=== PATIENT | male | born 1970 | race Caucasian/White ===

== ENCOUNTER 2021-11-04 14:21 | Inpatient (IN) | payer OTHER ==
[2021-11-04 15:14] VITALS: BMI 22.8
[2021-11-04] MEDS ORDERED: SODIUM CHLORIDE 0.9% 500 ML INFUS.BAG IV ONE (16:13)
[2021-11-04] MEDS ORDERED: ACETAMINOPHEN 1000 MG/100 ML BAG IVPB ONE (16:13)
[2021-11-04 17:16] LABS: BASO % 0.7 % (0-2.0); EOS % 1.1 % (0-4.5); HEMATOCRIT 41.5 % (35.4-49); HEMOGLOBIN 14.1 GM/dL (11.7-16.9); LYMPH % 9.7 % (8-40); MCH 30.3 pg (25.7-33.7); MCHC 33.9 g/dl (32.0-35.9); MEAN CELL VOLUME 89.3 fl (80-96); MEAN PLT VOLUME 8.3 fl (7.5-11.1); NEUT % 82.5 % (42.8-82.8); PLATELET COUNT 255 10^3/uL (134-434); RBC 4.65 M/mm3 (4.00-5.60); RDW 13.5 % (11.9-15.9); WHITE BLOOD COUNT 15.2 K/mm3 (4.0-10.0)
[2021-11-04 17:53] LABS: INR 1.07 (0.83-1.09); PROTHROMBIN TIME (PATIENT) 12.3 SEC (9.7-13.0)
[2021-11-04 18:01] LABS: ALBUMIN 3.9 g/dl (3.4-5.0); BLOOD UREA NITROGEN 13.8 mg/dL (7-18); CALCIUM 9.5 mg/dL (8.5-10.1)
[2021-11-04 18:04] LABS: CREATININE 0.6 mg/dL (0.55-1.3)
[2021-11-04 18:06] LABS: BILIRUBIN,TOTAL 0.6 mg/dL (0.2-1); TOT PROT 7.4 g/dl (6.4-8.2)
[2021-11-04] MEDS ORDERED: PIPERACILLIN/TAZOB 4.5 GM 4.5 GM in DEXTROSE 5%-WATER 100 ML IVPB ONE (18:46)
[2021-11-04] MEDS ORDERED: morphine CARPU-JECT 2 MG/1 ML DISP.SYRIN IVPUSH ONE (18:46)
[2021-11-04] MEDS ORDERED: PIPERACILLIN/TAZOB 4.5 GM 4.5 GM/100 ML BAG IVPB ONE (19:03)
[2021-11-04] MEDS ORDERED: ONDANSETRON 4 MG/2 ML VIAL IVPUSH PRN (19:28)
[2021-11-04] MEDS ORDERED: ACETAMINOPHEN 1000 MG/100 ML BAG IVPB PRN (19:28)
[2021-11-04] MEDS: SODIUM CHLORIDE 1,000 ML IV SCH (20:48)
[2021-11-05] MEDS ORDERED: PIPERACILLIN/TAZOB 3.375 GM 3.375 GM in DEXTROSE 5%-WATER - 50 ML IVPB SCH ×2 (03:00→18:00)
[2021-11-05] MEDS: PIPERACILLIN/TAZOB 3.375 GM 3.375 GM in DEXTROSE 5%-WATER - 50 ML IVPB SCH ×3 (04:25→18:20)
[2021-11-05] MEDS: SODIUM CHLORIDE 1,000 ML IV SCH ×2 (06:29→18:18)
[2021-11-05] MEDS ORDERED: SUCCINYLCHOLINE CHLORIDE 200 MG/10 ML SYRINGE ONE (07:17)
[2021-11-05] MEDS ORDERED: MIDAZOLAM HCL 2 MG/2 ML SINGLE DOSE VIAL ONE ×2 (07:17→10:57)
[2021-11-05] MEDS ORDERED: PROPOFOL 20 ML ONE (07:17)
[2021-11-05] MEDS ORDERED: ROCURONIUM BROMIDE 50 MG/5 ML SYRINGE ONE ×2 (07:18→10:55)
[2021-11-05] MEDS ORDERED: SEVOFLURANE 250 ML BTL ONE (07:19)
[2021-11-05] MEDS ORDERED: LIDOCAINE HCL/PF 2% SDV 5ML VIAL ONE ×2 (07:21→10:57)
[2021-11-05 09:25] LABS: HEMATOCRIT 39.1 % (35.4-49); HEMOGLOBIN 13.4 GM/dL (11.7-16.9); MCH 30.8 pg (25.7-33.7); MCHC 34.1 g/dl (32.0-35.9); MEAN CELL VOLUME 90.2 fl (80-96); MEAN PLT VOLUME 8.8 fl (7.5-11.1); PLATELET COUNT 238 10^3/uL (134-434); RBC 4.34 M/mm3 (4.00-5.60); RDW 13.8 % (11.9-15.9); WHITE BLOOD COUNT 12.3 K/mm3 (4.0-10.0)
[2021-11-05] MEDS ORDERED: NICOTINE 7 MG/24 HOURS TOPICAL PATCH TD SCH (10:00)
[2021-11-05 10:03] LABS: BLOOD UREA NITROGEN 12.6 mg/dL (7-18); CALCIUM 8.6 mg/dL (8.5-10.1)
[2021-11-05 10:06] LABS: CREATININE 0.6 mg/dL (0.55-1.3)
[2021-11-05] MEDS ORDERED: PROPOFOL 40 ML ONE (10:56)
[2021-11-05] MEDS ORDERED: DEXAMETHASONE SOD PHOSPHATE 4 MG/1 ML VIAL ONE ×2 (10:57→12:09)
[2021-11-05] MEDS ORDERED: KETOROLAC TROMETHAMINE 30 MG/1 ML VIAL ONE ×2 (10:57→12:26)
[2021-11-05] MEDS ORDERED: ONDANSETRON 4 MG/2 ML VIAL ONE ×2 (10:57→11:57)
[2021-11-05] MEDS ORDERED: LIDOCAINE HCL 2% 100 MG/5 ML DISP.SYRIN ONE (11:04)
[2021-11-05] MEDS ORDERED: BUPIVACAINE HCL/PF 0.5% (5MG/ML) 10 ML VIAL IJ ONE (11:21)
[2021-11-05] MEDS ORDERED: HYDROmorphone HCl 2 MG/ML VIAL ONE (12:20)
[2021-11-05] MEDS ORDERED: GLYCOPYRROLATE 0.2 MG/1 ML VIAL ONE (12:47)
[2021-11-05] MEDS ORDERED: NEOSTIGMINE METHYLSULFATE 0.5 MG/ML - 10 ML MDV ONE (12:47)
[2021-11-05] MEDS ORDERED: ONDANSETRON 4 MG/2 ML VIAL IVPUSH PRN (13:44)
[2021-11-05] MEDS ORDERED: LACTATED RINGERS SOLUTION 1,000 ML IV SCH (13:45)
[2021-11-05] MEDS: KETOROLAC TROMETHAMINE 15 MG/ML VIAL IVPUSH PRN (18:21)
[2021-11-05] MEDS: ACETAMINOPHEN 1000 MG/100 ML BAG IVPB PRN (20:16)
[2021-11-05] MEDS: HEPARIN NA (PORCINE) 5,000 UNITS/ML 1ML VIAL SQ SCH (21:44)
[2021-11-06] MEDS: SODIUM CHLORIDE 1,000 ML IV SCH (00:05)
[2021-11-06] MEDS: PIPERACILLIN/TAZOB 3.375 GM 3.375 GM in DEXTROSE 5%-WATER - 50 ML IVPB SCH ×2 (01:25→11:19)
[2021-11-06] MEDS: KETOROLAC TROMETHAMINE 15 MG/ML VIAL IVPUSH PRN ×2 (02:36→15:06)
[2021-11-06] MEDS: ACETAMINOPHEN 1000 MG/100 ML BAG IVPB PRN (09:19)
[2021-11-06 09:32] LABS: BASO % 0.3 % (0-2.0); EOS % 0.3 % (0-4.5); HEMATOCRIT 40.1 % (35.4-49); HEMOGLOBIN 13.3 GM/dL (11.7-16.9); MCH 29.8 pg (25.7-33.7); MCHC 33.1 g/dl (32.0-35.9); MEAN PLT VOLUME 8.5 fl (7.5-11.1); MONO % 4.9 % (3.8-10.2); NEUT % 88.5 % (42.8-82.8); PLATELET COUNT 262 10^3/uL (134-434); RBC 4.45 M/mm3 (4.00-5.60); RDW 13.3 % (11.9-15.9); WHITE BLOOD COUNT 13.7 K/mm3 (4.0-10.0)
[2021-11-06 10:01] LABS: CALCIUM 8.1 mg/dL (8.5-10.1); MAGNESIUM 1.7 mg/dL (1.8-2.4)
[2021-11-06 10:02] LABS: BLOOD UREA NITROGEN 10.1 mg/dL (7-18)
[2021-11-06 10:05] LABS: CREATININE 0.6 mg/dL (0.55-1.3)
[2021-11-06] MEDS: HEPARIN NA (PORCINE) 5,000 UNITS/ML 1ML VIAL SQ SCH ×2 (11:20→21:31)
[2021-11-06] MEDS: NICOTINE 7 MG/24 HOURS TOPICAL PATCH TD SCH (11:22)
[2021-11-06] MEDS ORDERED: MAGNESIUM OXIDE 400 MG TABLET (FP) PO ONE (13:39)
[2021-11-06] MEDS ORDERED: PIPERACILLIN/TAZOB 4.5 GM 4.5 GM in DEXTROSE 5%-WATER 100 ML IVPB ONE (15:30)
[2021-11-07] MEDS: ACETAMINOPHEN 500 MG TABLET (FP) PO PRN ×3 (01:21→21:39)
[2021-11-07] MEDS ORDERED: PIPERACILLIN/TAZOB 3.375 GM 3.375 GM in DEXTROSE 5%-WATER - 50 ML IVPB ONE (09:29)
[2021-11-07] MEDS: NICOTINE 7 MG/24 HOURS TOPICAL PATCH TD SCH (09:51)
[2021-11-07] MEDS: HEPARIN NA (PORCINE) 5,000 UNITS/ML 1ML VIAL SQ SCH ×2 (09:51→21:40)
[2021-11-07 12:21] LABS: BASO % 0.3 % (0-2.0); EOS % 0.4 % (0-4.5); HEMATOCRIT 37.6 % (35.4-49); HEMOGLOBIN 12.8 GM/dL (11.7-16.9); MCH 30.5 pg (25.7-33.7); MEAN CELL VOLUME 89.7 fl (80-96); MEAN PLT VOLUME 8.4 fl (7.5-11.1); NEUT % 90.3 % (42.8-82.8); PLATELET COUNT 255 10^3/uL (134-434); RBC 4.19 M/mm3 (4.00-5.60)
[2021-11-07 12:47] LABS: BLOOD UREA NITROGEN 6.6 mg/dL (7-18); CALCIUM 8.4 mg/dL (8.5-10.1)
[2021-11-07 12:50] LABS: CREATININE 0.5 mg/dL (0.55-1.3)
[2021-11-07 12:52] LABS: BILIRUBIN,TOTAL 0.6 mg/dL (0.2-1); TOT PROT 5.8 g/dl (6.4-8.2)
[2021-11-07 12:55] LABS: ALBUMIN 2.7 g/dl (3.4-5.0)
[2021-11-07] MEDS: PIPERACILLIN/TAZOB 3.375 GM 3.375 GM in DEXTROSE 5%-WATER 100 ML IVPB SCH (18:06)
[2021-11-08] MEDS: PIPERACILLIN/TAZOB 3.375 GM 3.375 GM in DEXTROSE 5%-WATER 100 ML IVPB SCH ×3 (02:00→17:47)
[2021-11-08] MEDS: ACETAMINOPHEN 500 MG TABLET (FP) PO PRN ×2 (05:56→21:51)
[2021-11-08 08:45] LABS: BASO % 0.3 % (0-2.0); HEMATOCRIT 38.1 % (35.4-49); HEMOGLOBIN 12.8 GM/dL (11.7-16.9); LYMPH % 5.6 % (8-40); MCHC 33.6 g/dl (32.0-35.9); MEAN CELL VOLUME 89.4 fl (80-96); MEAN PLT VOLUME 8.2 fl (7.5-11.1); NEUT % 85.1 % (42.8-82.8); PLATELET COUNT 282 10^3/uL (134-434); RBC 4.26 M/mm3 (4.00-5.60); RDW 13.3 % (11.9-15.9); WHITE BLOOD COUNT 14.8 K/mm3 (4.0-10.0)
[2021-11-08 09:23] LABS: CALCIUM 8.7 mg/dL (8.5-10.1)
[2021-11-08 09:24] LABS: ALBUMIN 2.7 g/dl (3.4-5.0); BLOOD UREA NITROGEN 8.1 mg/dL (7-18); MAGNESIUM 2.3 mg/dL (1.8-2.4)
[2021-11-08 09:27] LABS: CREATININE 0.7 mg/dL (0.55-1.3)
[2021-11-08 09:29] LABS: TOT PROT 5.9 g/dl (6.4-8.2)
[2021-11-08 09:30] LABS: BILIRUBIN,TOTAL 0.5 mg/dL (0.2-1)
[2021-11-08] MEDS: HEPARIN NA (PORCINE) 5,000 UNITS/ML 1ML VIAL SQ SCH ×2 (09:57→21:51)
[2021-11-08] MEDS: NICOTINE 7 MG/24 HOURS TOPICAL PATCH TD SCH (09:57)
[2021-11-09] MEDS: PIPERACILLIN/TAZOB 3.375 GM 3.375 GM in DEXTROSE 5%-WATER 100 ML IVPB SCH ×3 (02:09→17:48)
[2021-11-09] MEDS: ACETAMINOPHEN 500 MG TABLET (FP) PO PRN ×2 (06:38→21:28)
[2021-11-09 08:47] VITALS: RESP 18
[2021-11-09 09:14] LABS: BASO % 0.7 % (0-2.0); EOS % 2.8 % (0-4.5); HEMATOCRIT 38.7 % (35.4-49); LYMPH % 7.3 % (8-40); MCH 30.2 pg (25.7-33.7); MCHC 33.5 g/dl (32.0-35.9); MEAN CELL VOLUME 90.2 fl (80-96); MEAN PLT VOLUME 8.1 fl (7.5-11.1); MONO % 7.8 % (3.8-10.2); NEUT % 81.4 % (42.8-82.8); PLATELET COUNT 354 10^3/uL (134-434); RBC 4.29 M/mm3 (4.00-5.60); RDW 13.4 % (11.9-15.9); WHITE BLOOD COUNT 10.9 K/mm3 (4.0-10.0)
[2021-11-09 09:31] LABS: ALBUMIN 2.6 g/dl (3.4-5.0); CALCIUM 8.6 mg/dL (8.5-10.1); MAGNESIUM 2.2 mg/dL (1.8-2.4)
[2021-11-09 09:32] LABS: BLOOD UREA NITROGEN 7.7 mg/dL (7-18)
[2021-11-09] MEDS: NICOTINE 7 MG/24 HOURS TOPICAL PATCH TD SCH (09:34)
[2021-11-09] MEDS: HEPARIN NA (PORCINE) 5,000 UNITS/ML 1ML VIAL SQ SCH ×2 (09:34→21:28)
[2021-11-09 09:35] LABS: CREATININE 0.6 mg/dL (0.55-1.3)
[2021-11-09 09:36] LABS: BILIRUBIN,TOTAL 0.4 mg/dL (0.2-1); TOT PROT 6.1 g/dl (6.4-8.2)
[2021-11-09] MEDS ORDERED: PIPERACILLIN/TAZOBACTAM 3.375 GM VIAL IVPB ONE (17:04)
[2021-11-10] MEDS: PIPERACILLIN/TAZOB 3.375 GM 3.375 GM in DEXTROSE 5%-WATER 100 ML IVPB SCH ×2 (01:30→10:30)
[2021-11-10] MEDS ORDERED: PIPERACILLIN/TAZOBACTAM 3.375 GM VIAL IVPB ONE (10:16)
[2021-11-10] MEDS: NICOTINE 7 MG/24 HOURS TOPICAL PATCH TD SCH (10:30)
[2021-11-10] MEDS: HEPARIN NA (PORCINE) 5,000 UNITS/ML 1ML VIAL SQ SCH (10:30)
[2021-11-10 11:49] VITALS: TEMP 98.6
[2021-11-10 11:51] LABS: BASO % 0.5 % (0-2.0); HEMATOCRIT 38.3 % (35.4-49); HEMOGLOBIN 12.8 GM/dL (11.7-16.9); LYMPH % 9.6 % (8-40); MCHC 33.3 g/dl (32.0-35.9); MEAN CELL VOLUME 90.1 fl (80-96); MEAN PLT VOLUME 7.6 fl (7.5-11.1); MONO % 7.4 % (3.8-10.2); NEUT % 79.5 % (42.8-82.8); PLATELET COUNT 401 10^3/uL (134-434); RBC 4.25 M/mm3 (4.00-5.60); RDW 13.7 % (11.9-15.9); WHITE BLOOD COUNT 9.7 K/mm3 (4.0-10.0)
[2021-11-10 12:14] LABS: ALBUMIN 2.8 g/dl (3.4-5.0); BLOOD UREA NITROGEN 9.2 mg/dL (7-18); CALCIUM 8.9 mg/dL (8.5-10.1); MAGNESIUM 2.3 mg/dL (1.8-2.4)
[2021-11-10 12:18] LABS: CREATININE 0.6 mg/dL (0.55-1.3)
[2021-11-10 12:19] LABS: TOT PROT 6.4 g/dl (6.4-8.2)
[2021-11-10 12:20] LABS: BILIRUBIN,TOTAL 0.3 mg/dL (0.2-1)
[2021-11-10 13:06] VITALS: BP 117/68; PULSE 77
== END 2021-11-10 13:05 | disposition home or self-care (01) | DRG 225 ==
LOC: JER 14:21 → SUATTDRO 19:36 → JASUSAT 19:36 → J6S 21:56 → JASUSAT 21:57 → J6S 21:57
PROVIDERS: ADMIT Internal Medicine Infectious Disease; ATTEND Nurse Practitioner Acute Care
PROC: 0DTJ4ZZ Resection of Appendix, Percutaneous Endoscopic Approach (ICD-10-PCS; principal; 2021-11-05 11:30)
DX: K35.32 Acute appendicitis with perforation, localized peritonitis, and gangrene, without abscess (principal); F17.210 Nicotine dependence, cigarettes, uncomplicated; I45.10 Unspecified right bundle-branch block; R94.31 Abnormal electrocardiogram [ECG] [EKG]; D72.829 Elevated white blood cell count, unspecified
CPT/HCPCS: 0241U-QW; 36415; 74177-TC; 80048; 80053; 80061; 83036; 83690; 83735; 84443; 84484; 85025; 85027; 85610; 86850; 86900; 86901; 87040; 88304-TC; 93005; 93010; 93306-TC; 94760; 97116-GP; 97161-GP; 99285-25; J1644; Q9967

== ENCOUNTER 2024-05-07 22:49 | Inpatient (IN) | payer OTHER ==
[2024-05-07 22:55] VITALS: BMI 25.1
[2024-05-07 23:44] LABS: BASO % 0.2 % (0-2.0); EOS % 0.1 % (0-4.5); HEMATOCRIT 42.9 % (35.4-49); HEMOGLOBIN 14.4 GM/dL (11.7-16.9); LYMPH % 7.3 % (8-40); MCH 30.1 pg (25.7-33.7); MCHC 33.6 g/dl (32.0-35.9); MEAN CELL VOLUME 89.6 fl (80-96); MEAN PLT VOLUME 8.2 fl (7.5-11.1); MONO % 9.2 % (3.8-10.2); NEUT % 83.2 % (42.8-82.8); PLATELET COUNT 276 10^3/uL (134-434); RBC 4.79 M/mm3 (4.00-5.60); RDW 13.2 % (11.9-15.9); WHITE BLOOD COUNT 10.9 K/mm3 (4.0-10.0)
[2024-05-07 23:51] LABS: INR 1.1 (0.83-1.09); PROTHROMBIN TIME (PATIENT) 12.1 SEC (9.7-13.0)
[2024-05-07 23:54] LABS: ACTIVATED PTT 33.1 SECONDS (25.2-36.5); POTASSIUM 3.8 mmol/L (3.5-5.1)
[2024-05-07 23:57] LABS: ALBUMIN 3.7 g/dl (3.4-5.0); BLOOD UREA NITROGEN 14.5 mg/dL (7-18)
[2024-05-08] LABS: CREATININE 0.8 mg/dL (0.55-1.3)
[2024-05-08 00:01] LABS: BILIRUBIN,TOTAL 0.4 mg/dL (0.2-1)
[2024-05-08 00:02] LABS: TOT PROT 7.2 g/dl (6.4-8.2)
[2024-05-08 03:04] LABS: EPI CELLS 10 /uL (0-25.1); HYALINE CASTS 0 /uL (0-3.1); PH,URINE 5.5 (5.0-8.0); URINE APPEARANCE CLOUDY; URINE BACTERIA 404 /uL (0-1359); URINE BILIRUBIN NEGATIVE (NEGATIVE); URINE COLOR YELLOW; URINE GLUCOSE (UA) NEGATIVE (NEGATIVE); URINE KETONE TRACE (NEGATIVE); URINE LEUK ESTERASE 2+ (NEGATIVE); URINE NITRITE NEGATIVE (NEGATIVE); URINE PROTEIN 1+ (NEGATIVE); URINE RBC 44 /uL (0-23.9); URINE UROBILINOGEN 0.2 mg/dL (0.2-1.0); URINE WBC 2724 /uL (0-25.8)
[2024-05-08] MEDS ORDERED: WATER FOR INJ,STERILE 10 ML ONE (03:41)
[2024-05-08] MEDS ORDERED: DOXYCYCLINE HYCLATE 100 MG CAPSULE PO ONE (03:41)
[2024-05-08] MEDS: DOXYCYCLINE HYCLATE 100 MG CAPSULE PO ONE (03:56)
[2024-05-08] MEDS ORDERED: ACETAMINOPHEN INJECTION 100 ML ONE (04:56)
[2024-05-08] MEDS: ACETAMINOPHEN 1000 MG/100 ML BAG IVPB ONE (04:59)
[2024-05-08 09:41] LABS: BASO % 0.3 % (0-2.0); EOS % 0.1 % (0-4.5); HEMATOCRIT 40.1 % (35.4-49); HEMOGLOBIN 13.9 GM/dL (11.7-16.9); LYMPH % 10.7 % (8-40); MCH 30.4 pg (25.7-33.7); MCHC 34.7 g/dl (32.0-35.9); MEAN CELL VOLUME 87.6 fl (80-96); MEAN PLT VOLUME 8.5 fl (7.5-11.1); MONO % 13.1 % (3.8-10.2); NEUT % 75.8 % (42.8-82.8); PLATELET COUNT 278 10^3/uL (134-434); RBC 4.57 M/mm3 (4.00-5.60); RDW 12.7 % (11.9-15.9); WHITE BLOOD COUNT 13.6 K/mm3 (4.0-10.0)
[2024-05-08 09:59] LABS: POTASSIUM 3.5 mmol/L (3.5-5.1)
[2024-05-08 10:06] LABS: CALCIUM 8.6 mg/dL (8.5-10.1)
[2024-05-08 10:07] LABS: ALBUMIN 3.4 g/dl (3.4-5.0)
[2024-05-08 10:10] LABS: CREATININE 0.7 mg/dL (0.55-1.3)
[2024-05-08 10:11] LABS: BILIRUBIN,TOTAL 0.6 mg/dL (0.2-1)
[2024-05-08 10:12] LABS: TOT PROT 6.7 g/dl (6.4-8.2)
[2024-05-08] MEDS: ENOXAPARIN NA (PORCINE) 40 MG/0.4 ML DISP.SYRIN SQ SCH (10:14)
[2024-05-08] MEDS: DOXYCYCLINE INJECTION 100 MG in DEXTROSE 5%-WATER 100 ML IVPB SCH (15:02)
[2024-05-08] MEDS: CEFTRIAXONE 1 G/50 ML PREMIX 50 ML IVPB SCH (20:21)
[2024-05-08] MEDS: IBUPROFEN 600 MG TABLET (FP) PO PRN (23:08)
[2024-05-09] MEDS: ACETAMINOPHEN 325 MG TABLET (FP) PO STA (00:38)
[2024-05-09 07:45] LABS: BASO % 0.5 % (0-2.0); EOS % 0.3 % (0-4.5); HEMATOCRIT 41.2 % (35.4-49); LYMPH % 9.1 % (8-40); MCH 30.1 pg (25.7-33.7); MCHC 34.1 g/dl (32.0-35.9); MEAN CELL VOLUME 88.4 fl (80-96); MEAN PLT VOLUME 8.2 fl (7.5-11.1); MONO % 12.3 % (3.8-10.2); NEUT % 77.8 % (42.8-82.8); PLATELET COUNT 262 10^3/uL (134-434); RBC 4.66 M/mm3 (4.00-5.60); RDW 13.1 % (11.9-15.9); WHITE BLOOD COUNT 17.9 K/mm3 (4.0-10.0)
[2024-05-09 08:00] LABS: POTASSIUM 4.5 mmol/L (3.5-5.1)
[2024-05-09 08:03] LABS: BLOOD UREA NITROGEN 15.3 mg/dL (7-18)
[2024-05-09 08:04] LABS: ALBUMIN 3.1 g/dl (3.4-5.0)
[2024-05-09 08:07] LABS: CREATININE 0.7 mg/dL (0.55-1.3)
[2024-05-09 08:09] LABS: BILIRUBIN,TOTAL 0.7 mg/dL (0.2-1); TOT PROT 6.8 g/dl (6.4-8.2)
[2024-05-10 08:19] LABS: BASO % 0.3 % (0-2.0); EOS % 0.7 % (0-4.5); HEMOGLOBIN 13.5 GM/dL (11.7-16.9); MCH 29.7 pg (25.7-33.7); MEAN CELL VOLUME 89.8 fl (80-96); MEAN PLT VOLUME 8.3 fl (7.5-11.1); MONO % 8.6 % (3.8-10.2); NEUT % 79.4 % (42.8-82.8); PLATELET COUNT 292 10^3/uL (134-434); RBC 4.57 M/mm3 (4.00-5.60); RDW 13.2 % (11.9-15.9); WHITE BLOOD COUNT 12.6 K/mm3 (4.0-10.0)
[2024-05-10 10:38] LABS: POTASSIUM 4.3 mmol/L (3.5-5.1)
[2024-05-10 10:44] LABS: ALBUMIN 3.2 g/dl (3.4-5.0); BLOOD UREA NITROGEN 15.2 mg/dL (7-18); MAGNESIUM 2.3 mg/dL (1.8-2.4)
[2024-05-10 10:46] LABS: CREATININE 0.6 mg/dL (0.55-1.3)
[2024-05-10 10:48] LABS: BILIRUBIN,TOTAL 0.6 mg/dL (0.2-1); TOT PROT 6.7 g/dl (6.4-8.2)
[2024-05-11 09:08] LABS: BASO % 0.6 % (0-2.0); EOS % 1.4 % (0-4.5); HEMATOCRIT 41.3 % (35.4-49); HEMOGLOBIN 13.7 GM/dL (11.7-16.9); LYMPH % 14.9 % (8-40); MCH 29.8 pg (25.7-33.7); MCHC 33.3 g/dl (32.0-35.9); MEAN CELL VOLUME 89.6 fl (80-96); MEAN PLT VOLUME 8.2 fl (7.5-11.1); MONO % 7.3 % (3.8-10.2); NEUT % 75.8 % (42.8-82.8); PLATELET COUNT 356 10^3/uL (134-434); RBC 4.61 M/mm3 (4.00-5.60); RDW 13.1 % (11.9-15.9); WHITE BLOOD COUNT 8.4 K/mm3 (4.0-10.0)
[2024-05-11 09:18] LABS: POTASSIUM 4.7 mmol/L (3.5-5.1)
[2024-05-11 09:23] LABS: ALBUMIN 3.3 g/dl (3.4-5.0); BLOOD UREA NITROGEN 12.5 mg/dL (7-18); MAGNESIUM 2.2 mg/dL (1.8-2.4)
[2024-05-11 09:26] LABS: CREATININE 0.5 mg/dL (0.55-1.3)
[2024-05-11 09:32] LABS: BILIRUBIN,TOTAL 0.6 mg/dL (0.2-1)
[2024-05-11] MEDS: ERTAPENEM SODIUM 1 GM in SODIUM CHLORIDE 50 ML IVPB SCH (10:40)
[2024-05-11] MEDS: DOXYCYCLINE HYCLATE 100 MG CAPSULE PO SCH (10:43)
[2024-05-11] MEDS: POLYETHYLENE GLYCOL (HEALTHYLAX) 3350 17 GM PACKET PO SCH (12:20)
[2024-05-12 10:14] LABS: BASO % 0.8 % (0-2.0); EOS % 1.4 % (0-4.5); HEMOGLOBIN 14.3 GM/dL (11.7-16.9); LYMPH % 15.7 % (8-40); MCH 30.2 pg (25.7-33.7); MCHC 34.1 g/dl (32.0-35.9); MEAN CELL VOLUME 88.7 fl (80-96); MEAN PLT VOLUME 8.1 fl (7.5-11.1); MONO % 5.5 % (3.8-10.2); NEUT % 76.6 % (42.8-82.8); PLATELET COUNT 397 10^3/uL (134-434); RBC 4.73 M/mm3 (4.00-5.60); RDW 13.3 % (11.9-15.9); WHITE BLOOD COUNT 9.9 K/mm3 (4.0-10.0)
[2024-05-12 11:41] LABS: POTASSIUM 5.3 mmol/L (3.5-5.1)
[2024-05-12 11:43] LABS: ALBUMIN 3.4 g/dl (3.4-5.0)
[2024-05-12 11:48] LABS: BILIRUBIN,TOTAL 0.6 mg/dL (0.2-1)
[2024-05-12 11:51] LABS: BLOOD UREA NITROGEN 14.9 mg/dL (7-18); CALCIUM 9.2 mg/dL (8.5-10.1); MAGNESIUM 2.3 mg/dL (1.8-2.4)
[2024-05-12 11:55] LABS: CREATININE 0.5 mg/dL (0.55-1.3)
[2024-05-12] MEDS: POLYETHYLENE GLYCOL (HEALTHYLAX) 3350 17 GM PACKET PO SCH (13:16)
[2024-05-13 07:35] VITALS: RESP 18
[2024-05-13 09:04] LABS: INR 1.09 (0.83-1.09)
[2024-05-13 09:09] LABS: BASO % 0.6 % (0-2.0); EOS % 1.5 % (0-4.5); HEMATOCRIT 40.1 % (35.4-49); HEMOGLOBIN 13.5 GM/dL (11.7-16.9); LYMPH % 14.5 % (8-40); MCHC 33.7 g/dl (32.0-35.9); MEAN CELL VOLUME 89.2 fl (80-96); MEAN PLT VOLUME 7.7 fl (7.5-11.1); NEUT % 78.4 % (42.8-82.8); PLATELET COUNT 408 10^3/uL (134-434); RDW 13.3 % (11.9-15.9); WHITE BLOOD COUNT 10.9 K/mm3 (4.0-10.0)
[2024-05-13 09:22] LABS: POTASSIUM 4.5 mmol/L (3.5-5.1)
[2024-05-13 09:28] LABS: CALCIUM 9.1 mg/dL (8.5-10.1)
[2024-05-13 09:29] LABS: ALBUMIN 3.3 g/dl (3.4-5.0); BLOOD UREA NITROGEN 11.7 mg/dL (7-18)
[2024-05-13 09:32] LABS: CREATININE 0.5 mg/dL (0.55-1.3)
[2024-05-13 09:33] LABS: BILIRUBIN,TOTAL 0.3 mg/dL (0.2-1); TOT PROT 6.7 g/dl (6.4-8.2)
[2024-05-13 15:59] VITALS: BP 123/73; PULSE 71; TEMP 98.8
== END 2024-05-13 19:40 | disposition home or self-care (01) | DRG 501 ==
LOC: JER 22:49 → JERBED 05-08 05:00 → J7W 05-08 07:56
PROVIDERS: ADMIT Internal Medicine; ATTEND Physician Assistant
DX: N45.1 Epididymitis (principal); N39.0 Urinary tract infection, site not specified; R74.01 Elevation of levels of liver transaminase levels; D72.829 Elevated white blood cell count, unspecified; K59.00 Constipation, unspecified; K40.90 Unilateral inguinal hernia, without obstruction or gangrene, not specified as recurrent; R79.89 Other specified abnormal findings of blood chemistry
CPT/HCPCS: 36415; 74176-TC; 74178-TC; 76705-TC; 76870-TC; 80053; 81003; 82550; 83605; 83735; 84132; 85025; 85610; 85730; 86140; 86704; 86705; 86708; 86803; 86850; 86900; 86901; 87040; 87086; 87186; 87340; 87491; 87517; 87522; 87536; 87591; 93005; 93010; 99285-25; J0131; Q9963; Q9967

== ENCOUNTER 2024-05-14 12:06 | Day surgery (SDC) | payer OTHER ==
[2024-05-14] MEDS: ERTAPENEM SODIUM 1 GM in SODIUM CHLORIDE 50 ML IVPB SCH (12:35)
[2024-05-14 13:15] VITALS: BP 117/90; PULSE 84; RESP 18; TEMP 98.1
== END 2024-05-14 13:10 | disposition home or self-care (01) ==
LOC: FINFUSION 12:06 → FM/S 12:08 → FINFUSION 13:10
DX: N39.0 Urinary tract infection, site not specified (principal); N45.4 Abscess of epididymis or testis
CPT/HCPCS: 96365

== ENCOUNTER 2024-05-15 11:44 | Day surgery (SDC) | payer OTHER ==
[2024-05-15] MEDS: ERTAPENEM SODIUM 1 GM in SODIUM CHLORIDE 50 ML IVPB ONE (12:21)
[2024-05-15 14:11] VITALS: BP 122/74; PULSE 70; RESP 16; TEMP 98
== END 2024-05-15 13:23 | disposition home or self-care (01) ==
LOC: FINFUSION 11:44 → FM/S 11:45 → FINFUSION 13:23
DX: N39.0 Urinary tract infection, site not specified (principal); N45.4 Abscess of epididymis or testis
CPT/HCPCS: 96365

== ENCOUNTER 2024-05-16 11:57 | Day surgery (SDC) | payer OTHER ==
[2024-05-16] MEDS: ERTAPENEM SODIUM 1 GM in SODIUM CHLORIDE 50 ML IVPB ONE (12:25)
[2024-05-16 13:14] VITALS: BP 120/75; PULSE 76; RESP 18; TEMP 98.5
== END 2024-05-16 13:14 | disposition home or self-care (01) ==
LOC: FINFUSION 11:57 → FM/S 11:57 → FINFUSION 13:14
DX: N39.0 Urinary tract infection, site not specified (principal); N45.4 Abscess of epididymis or testis
CPT/HCPCS: 96365